=== PATIENT | male | born 1970 | race Caucasian/White ===

== ENCOUNTER 2019-09-26 05:58 | Emergency (ER) | payer SELFPAY ==
[2019-09-26 06:02] VITALS: BP 160/76; PULSE 77; RESP 16; TEMP 36.7; O2SAT 100
--- NOTE | 2019-09-26 07:01 | ED.SKABFB ---
HPI - Skin/Abscess/Foreign Bdy General Chief complaint: Skin/Abscess/Foreign Body Stated complaint: boil on face Time Seen by Provider: 09/26/19 07:01 Source: patient Mode of arrival: ambulatory Limitations: no limitations History of Present Illness HPI narrative: Patient is a 49-year-old male who presents for evaluation of a 5-day history of right-sided facial irritation. Patient states that he had a pimple on the right side of his face which he popped, drained some white material, and since that time he has had some redness and swelling over his cheek. Patient denies fever, chills. He has been trying some [id number] Neosporin without much improvement. No recurrent drainage. No other rash. No new soaps, lotions or detergents. Patient does not have a history of skin infections in the past. Related Data Allergies Allergy/AdvReac Type Severity Reaction Status Date / Time No Known Allergies Allergy Unverified 07/01/16 18:51 Review of Systems Review of Systems: Narrative: CONSTITUTIONAL: Denies fever CARDIOVASCULAR: Denies chest pain RESPIRATORY: Denies cough or dyspnea. GASTROINTESTINAL: Denies abdominal pain SKIN: Reports redness and swelling on the right side of his cheek MUSCULOSKELETAL: Denies back pain NEUROLOGIC: Denies headache PMFSH Past Medical History Medical History Chronic back pain Diabetes Hypertension Surgical History Surgical History (Updated 09/26/19 @ 07:20 by Baylee Jensen MD) H/O rhinoplasty Social History Social History (Updated 09/26/19 @ 07:21 by Baylee Jensen MD) Smoking status: Current every day smoker Alcohol intake: never Substance use: never Gender identity (if verbalized by the patient): Male Exam Narrative: Exam Narrative: GENERAL: Awake, alert, conversant HEAD: Normocephalic, atraumatic. Right-sided maxilla edema, positive induration, mild warmth, erythema present. No fluctuance, no purulent discharge. There is a small wound area no discharge from this. No as sharp. No crepitus. EYES: PERRLA and EOMI, no pain with extraocular movements. ENT: Nares clear, no rhinorrhea or epistaxis. Mucous membranes moist. NECK: Supple. CHEST: No respiratory distress, breathing even and non labored HEART: Regular rate, sinus rhythm ABDOMEN:Non distended, non tender EXTREMITIES: Normal range of motion. No edema. SKIN: Warm, dry, no rash. NEURO:No focal deficits. Alert and oriented x3 Course Vital Signs Vital signs: Vital Signs Temperature 36.7 C 09/26/19 06:02 Pulse Rate 77 09/26/19 06:02 Respiratory Rate 16 09/26/19 06:02 Blood Pressure 160/76 H 09/26/19 06:02 Pulse Oximetry 100 09/26/19 06:02 Temperature 36.7 C 09/26/19 06:02 Pulse Rate 77 09/26/19 06:02 Respiratory Rate 16 09/26/19 06:02 Blood Pressure 160/76 H 09/26/19 06:02 Pulse Oximetry 100 09/26/19 06:02 MDM - Skin/Abscess/Foreign Bdy MDM Narrative Medical decision making narrative: Patient presented for evaluation of right-sided facial irritation after the patient popped a pimple on the right side of his face. Patient has no evidence of abscess, no fluctuance, no active purulent drainage, there is some induration, mild warmth of the right maxillary epidermis tissue. This is concerning for early cellulitis. No ocular involvement to suggest preseptal or orbital cellulitis. No vesicles to suggest zoster. Patient is otherwise systemically well without signs of systemic infection or sepsis. We will go ahead and prescribe antibiotics for the patient and patient does have a follow-up appoint with his primary care provider next week. Advised the patient to return should the swelling worsen, he have any eye involvement, vision double changes, fever, or inability to tolerate the antibiotic. Patient was then discharged home in stable condition. Differential Diagnosis Differential diagnosis: Likely abscess of skin or subc
== END 2019-09-26 07:37 | disposition home or self-care (01) ==
PROVIDERS: Emergency Provider Emergency Medicine
DX: L03.211 Cellulitis of face (principal); E11.9 Type 2 diabetes mellitus without complications; I10 Essential (primary) hypertension; F17.200 Nicotine dependence, unspecified, uncomplicated
CPT/HCPCS: 99283

== ENCOUNTER 2019-12-26 13:55 | Emergency (ER) | payer MEDICAID, SELFPAY ==
[2019-12-26 13:59] VITALS: BP 133/74; PULSE 89; RESP 20; TEMP 36.8; O2SAT 100
[2019-12-26 14:48] VITALS: BP 141/74; PULSE 84; RESP 19; TEMP 36.6; O2SAT 99
--- NOTE | 2019-12-26 14:48 | ED.LOWEXIN ---
HPI - Extremity Injury (Lower) General Chief Complaint: Extremity Injury, Lower Stated Complaint: L HIP PAIN Time Seen by Provider: 12/26/19 14:04 History of Present Illness HPI Narrative: Patient is a 49-year-old male who presents ER with left hip pain. Has been diagnosed with trochanteric bursitis. He has had a steroid injection several weeks ago that only lasted for about a week. No recent trauma or injury. Pain is worse at night. He has no focal weakness. No numbness of the lower extremity. He does report increasing edema bilateral lower extremities that is trace. Patient had been on a course of naproxen for 14 days which did not help his discomfort. Related Data Home Medications Medication Instructions Recorded Confirmed atorvastatin 12/26/19 famotidine 12/26/19 gabapentin 12/26/19 lisinopril 12/26/19 metformin mg 12/26/19 pioglitazone mg 12/26/19 sildenafil (pulm.hypertension) 12/26/19 verapamil mg PO 12/26/19 Allergies Allergy/AdvReac Type Severity Reaction Status Date / Time No Known Allergies Allergy Verified 12/26/19 13:57 Review of Systems Review of Systems: All systems reviewed & are unremarkable except as noted in HPI and below Constitutional: Constitutional: Denies chills and Denies fever(s) Musculoskeletal: Musculoskeletal: Denies back pain, Denies arthralgias, Denies joint swelling and Denies muscle cramps Comments: Left hip pain Neurologic: Denies focal weakness and Denies numbness PMFSH Past Medical History Medical History (Updated 12/26/19 @ 14:52 by Raphael Hamilton MD) Chronic back pain Diabetes Hypertension Surgical History Surgical History (Updated 09/26/19 @ 07:20 by Baylee Jensen MD) H/O rhinoplasty Social History Social History (Updated 09/26/19 @ 07:21 by Baylee Jensen MD) Smoking status: Current every day smoker Alcohol intake: never Substance use: never Gender identity (if verbalized by the patient): Male Exam Narrative: Exam Narrative: GENERAL: Well-appearing, well-nourished, and in no acute distress. HEAD: Normocephalic, atraumatic. EXTREMITIES: Normal range of motion. Trace edema. No tenderness with palpation of the left hip. Back: No midline tenderness of the thoracic or lumbar spine. No paraspinal muscular tenderness or discomfort over the SI joints. SKIN: Warm, dry, no rash. NEURO: No focal deficits. Alert and oriented x3. PSYCH: Normal mood and affect. Course Course Emergency Course: We will give a Medrol Dosepak and some [place]. Needs follow-up with PCP. Vital Signs Vital signs: Vital Signs Temperature 98.2 F 12/26/19 13:59 Pulse Rate 89 12/26/19 13:59 Respiratory Rate 20 12/26/19 13:59 Blood Pressure 133/74 12/26/19 13:59 Pulse Oximetry 100 12/26/19 13:59 Temperature 98.2 F 12/26/19 13:59 Pulse Rate 89 12/26/19 13:59 Respiratory Rate 20 12/26/19 13:59 Blood Pressure 133/74 12/26/19 13:59 Pulse Oximetry 100 12/26/19 13:59 Discharge Plan Discharge Clinical Impression: Greater trochanteric bursitis of left hip Patient Disposition: Home, Self-Care Condition: Stable Instructions: Hip Bursitis (ED) Additional Instructions: Return to the ER if you have increased pain in your back, you develop lower extremity weakness/numbness/paralysis, you have numbness or tingling in your private parts, or you are unable to control your ability to urinate/stool. Prescriptions: New methylprednisolone [Medrol (Adam)] 4 mg tablets,dose pack See Rx Instructions .ROUTE .COMPLEX Qty: 21 RF: 0 hydrocodone-acetaminophen 5-325 mg tablet 1 tablet PO Q6H PRN (Reason: pain) Qty: 10 RF: 0 No Action atorvastatin 20 mg tablet RF: 0 lisinopril 20 mg tablet RF: 0 famotidine 20 mg tablet RF: 0 metformin 1,000 mg tablet RF: 0 gabapentin 300 mg capsule RF: 0 pioglitazone 30 mg tablet RF: 0 verapamil 240 mg caps
[2019-12-26 15:43] VITALS: BP 124/83; PULSE 85; RESP 16; O2SAT 100
== END 2019-12-26 15:45 | disposition home or self-care (01) ==
PROVIDERS: Emergency Provider Emergency Medicine
DX: M70.62 Trochanteric bursitis, left hip (principal); E11.9 Type 2 diabetes mellitus without complications; I10 Essential (primary) hypertension; Z79.84 Long term (current) use of oral hypoglycemic drugs; F17.200 Nicotine dependence, unspecified, uncomplicated
CPT/HCPCS: 99283

== ENCOUNTER 2023-04-11 09:37 | Outpatient (CLI) | payer BC, SELFPAY ==
--- NOTE | ~2023-04-11 | MR_ITS ---
EXAMINATION: MR brain/brain stem wo/w con DATE: 04/11/2023 10:28 INDICATION: Memory loss. Abnormal brain MRI. TECHNIQUE: Magnetic resonance imaging (MRI) of the brain and brainstem was performed without and with 20 mL MultiHance intravenous contrast. COMPARISON: Head CT 01/07/2011 FINDINGS: The lateral, third, and fourth ventricles are dilated out of proportion to the size of the sulci. There is increased T2-weighted signal intensity in the periventricular white matter, likely tr ansependymal flow of cerebrospinal fluid. There is no intracranial hemorrhage, acute infarction, or a bnormal intracranial mass lesion. There is mild mucosal thickening in the paranasal sinuses. The orbi ts are normal. The mastoid air cells are normal. IMPRESSION: 1. Ventriculomegaly, new from 01/07/2011. Correlate clinically for normal pressure hydrocephalus. Reviewed, dictated and finalized at location A. K PLAN ADMINISTRATOR IMPRESSION: 1. Ventriculomegaly, new from 01/07/2011. Correlate clinically for normal press ure hydrocephalus.
== END 2023-04-11 09:38 | disposition home or self-care (01) ==
DX: G93.89 Other specified disorders of brain (principal); R41.3 Other amnesia; R90.89 Other abnormal findings on diagnostic imaging of central nervous system
CPT/HCPCS: 70553; A9577

== ENCOUNTER 2023-07-16 11:01 | Emergency (ER) | payer BC, SELFPAY ==
--- NOTE | ~2023-07-16 | CT_ITS ---
EXAMINATION: CT abdomen pelvis w con DATE: 07/16/2023 12:19 INDICATION: Generalized abdominal pain. TECHNIQUE: Computed tomography (CT) of the abdomen and pelvis was performed with 100 mL Omnipaque 350 intravenous contrast. Automated exposure control and iterative reconstruction technique were employe d. The dose-length product was 841.43 mGy-cm. COMPARISON: None. FINDINGS: The visualized portions of the lung bases demonstrate mild atelectasis. There is a 10 mm no dule in left upper lobe. No pleural effusion. The heart size is normal. There are coronary artery mariusz cifications. No pericardial effusion. The liver and gallbladder are normal. Calcifications in the spl een are consistent with old granulomatous disease. The pancreas, adrenal glands, and right kidney are normal. There is a 17 mm cyst in left kidney. There is diverticulosis of the colon without evidence of diverticulitis. The appendix is normal. A ventriculoperitoneal shunt is noted. There are foci of f ree intraperitoneal gas. There are foci of gas in the anterior body wall. There are no pathologically enlarged lymph nodes. There is trace pelvic ascites. There is lumbar dextroscoliosis and severe spon dylosis. There is mild chronic anterior wedging of multiple vertebral bodies. IMPRESSION: 1. 10 mm left upper lobe pulmonary nodule suspicious for primary bronchogenic carcinoma. PET/CT or 3 month noncontrast low-dose chest CT is recommended. 2. Gas in the peritoneum and anterior body wall, likely from recent ventriculoperitoneal shunt placem ent. Reviewed, dictated and finalized at location A. IMPRESSION: 1. 10 mm left upper lobe pulmonary nodule suspicious for primary bronchogenic c arcinoma. PET/CT or 3 month noncontrast low-dose chest CT is recommended. 2. Gas in the peritoneum and anterior body wall, likely from recent ventriculop eritoneal shunt placement.
[2023-07-16 11:03] VITALS: BP 167/91; PULSE 79; RESP 16; TEMP 37; O2SAT 99
[2023-07-16 11:13] LABS: Basophils Percent Auto 0.3 % (0.2-1.2); Eosinophils Absolute Auto 0.2 K/mm3 (0-0.3); Eosinophils Percent Auto 2.3 % (0-4.4); Hematocrit 45.1 % (42.0-52.0); Hemoglobin 14.7 g/dL (14.0-18.0); Immature Granulocyte Absolute 0.08 K/mm3 (0.00-0.031); Immature Granulocyte Percent A 0.9 % (0-0.5); Lymphocytes Absolute Auto 1.77 K/mm3 (0.9-3.2); Lymphocytes Percent Auto 20.3 % (18.3-44.2); Mean Corpuscular HGB Conc 32.6 g/dl (32-36); Mean Corpuscular Hemoglobin 31.5 pg (26-34); Mean Corpuscular Volume 96.6 fl (80-100); Monocytes Absolute Auto 0.7 K/mm3 (0.1-0.6); Monocytes Percent Auto 7.4 % (2.6-8.5); Neutrophils Percent Auto 68.8 % (45.5-73.1); Platelet Count Result 291 k/mm3 (150-375); Red Blood Count 4.67 M/mm3 (4.6-6.20); Red Cell Distribution Width 14.4 % (11.5-14.5); White Blood Count 8.7 K/mm3 (4.5-10.0)
[2023-07-16 11:15] VITALS: BP 144/93; PULSE 74; RESP 17; O2SAT 100
--- NOTE | 2023-07-16 11:18 | ED.ABDPAIN ---
HPI - Abdominal Pain General Chief Complaint: Abdominal Pain <Joni Ovalle PA-C - Last Filed: 07/16/23 19:00> Stated Complaint: abd pain <Joni Ovalle PA-C - Last Filed: 07/16/23 19:00> Time Seen by Provider: 07/16/23 11:04 <Joni Ovalle PA-C - Last Filed: 07/16/23 19:00> Source: patient <DEANNE Sethi Last Filed: 07/16/23 19:00> Mode of arrival: ambulatory <DEANNE Sethi Last Filed: 07/16/23 19:00> Limitations: no limitations <Joni Ovalle PA-C - Last Filed: 07/16/23 19:00> History of Present Illness HPI narrative: This is a 53-year-old male who presents to the ED with chief complaint of diffuse abdominal discomfort for the past few days. Patient reports he had RN ER shunt placed 1 week ago and has been dealing with constipation. Yesterday states that he started to have more regular bowel movements which has helped. He states he is still feeling a little bloated and just wanted to get checked out. Denies fevers, chills, vomiting, nausea, diarrhea, flank pain, urinary symptoms, headache. <Joni Ovalle PA-C - Last Filed: 07/16/23 19:00> Related Data Home Medications: Home Medications Medication Instructions Recorded Confirmed atorvastatin 20 mg tablet 12/26/19 famotidine 20 mg tablet 12/26/19 gabapentin 300 mg capsule 12/26/19 lisinopril 20 mg tablet 12/26/19 metformin 1,000 mg tablet mg 12/26/19 pioglitazone 30 mg tablet mg 12/26/19 sildenafil (pulm.hypertension) 20 12/26/19 mg tablet verapamil 240 mg 24 hr mg PO 12/26/19 capsule,extended release <DEANNE Sethi Last Filed: 07/16/23 19:00> Allergies/Adverse Reactions: Allergies Allergy/AdvReac Type Severity Reaction Status Date / Time ibuprofen AdvReac Unknown Verified 07/16/23 11:08 naproxen AdvReac Unknown Verified 07/16/23 11:08 <Joni Ovalle PA-C - Last Filed: 07/16/23 19:00> Review of Systems Review of Systems: All systems as dictated in HPI <Joni Ovalle PA-C - Last Filed: 07/16/23 19:00> PMFSH Past Medical History Medical History: Medical History (Updated 07/16/23 @ 13:17 by Joni Ovalle PA-C) Chronic back pain Diabetes Hypertension <Joni Ovalle PA-C - Last Filed: 07/16/23 19:00> Surgical History Surgical History: Surgical History (Updated 09/26/19 @ 07:20 by Baylee Jensen MD) H/O rhinoplasty <Joni Ovalle PA-C - Last Filed: 07/16/23 19:00> Social History Social History: Social History (Updated 09/26/19 @ 07:21 by Baylee Jensen MD) Smoking status: Current every day smoker Alcohol intake: never Substance use: never Gender identity (if verbalized by the patient): Male <Joni Ovalle PA-C - Last Filed: 07/16/23 19:00> Exam Narrative: GENERAL: Well-appearing, well-nourished, and in no acute distress. HEAD: Normocephalic, atraumatic. EYES: PERRLA and EOMI. ENT: Nares clear, no rhinorrhea or epistaxis. Mucous membranes moist. Oropharynx without tonsillar hypertrophy exudate or other lesions. NECK: Supple. No adenopathy or masses. CHEST: No respiratory distress. Clear to auscultation. No wheezes rales or rhonchi HEART: Regular rate and rhythm. No murmur heard. Normal peripheral pulses. ABDOMEN: Mild abdominal distension. Soft, nontender, normal active bowel sounds. Negative peritoneal signs MSK: Normal range of motion. No edema. SKIN: Warm, dry, no rash. NEURO: Alert and oriented x3. No focal deficits. PSYCH: Normal mood and affect. <Joni Ovalle PA-C - Last Filed: 07/16/23 19:00> Course GATE CLERK/PA Physician Supervision This visit was performed by both a physician and an APC. I performed all aspects of the MDM as documented. <Re Maria MD - Last Filed: 07/16/23 22:33> Vital Signs Vital signs: Vital Signs Temperature 98.6 F 07/16/23 11:03 Pulse Rate 79 07/16/23 11:03 Respiratory Rate 16 07/16/23 11:03 Blood Pressure 167/91 H 07/16/23
[2023-07-16 11:23] LABS: Alanine Aminotransferase 13 U/L (6-50); Albumin Level 4.4 g/dL (3.5-5.1); Alkaline Phosphatase 62 U/L (38-126); Anion Gap 10 mmol/L (4-12); Aspartate Amino Transferase 14 U/L (17-59); Bilirubin,Total 0.4 mg/dL (0.2-1.3); Blood Urea Nitrogen 13 mg/dL (9-20); Calcium 10.1 mg/dL (8.4-10.2); Carbon Dioxide 26 mmol/L (22-30); Chloride 106 mmol/L (98-107); Estimated CRCL calculation 119 ml/min; Estimated Glomerular Filt Rate > 60; Glucose 114 mg/dL (65-110); Lipase 46 U/L (23-300); Potassium 4.2 mmol/L (3.4-5.0); Sodium 142 mmol/L (137-145)
[2023-07-16 11:46] LABS: Appearance Urine Clear (Clear); Bacteria Urine None Seen /hpf; Bilirubin Urine Negative (Negative); Blood Urine Negative (Negative); Color Urine Yellow (Yellow); Glucose Urine UA 3+ mg/dL (Negative); Ketones Urine Negative (Negative); Leukocyte Esterase Ur Negative LEU/UL (Negative); Nitrate Urine Negative (Negative); Non Pathogenic Casts 0-2; Protein Urine 1+ mg/dL (Negative); RBC Urine 0-2 /hpf (0-2); Squamous Epithelial Cell Urine None Seen /hpf (Few); WBC Urine 0-5 /hpf (0-3); pH Urine 5.5 (5.0-9.0)
[2023-07-16 11:54] LABS: Add Urine Microscopic? YES; Specific Grav Ur 1.039 (1.001-1.035)
[2023-07-16 14:04] VITALS: BP 144/93; PULSE 68; RESP 13; TEMP 36.7; O2SAT 98
== END 2023-07-16 14:05 | disposition home or self-care (01) ==
PROVIDERS: Emergency Medicine; Emergency Provider Physician Assistant
DX: R10.84 Generalized abdominal pain (principal); R91.1 Solitary pulmonary nodule; M54.50 Low back pain, unspecified; G89.29 Other chronic pain; I10 Essential (primary) hypertension; E11.9 Type 2 diabetes mellitus without complications; Z79.84 Long term (current) use of oral hypoglycemic drugs
CPT/HCPCS: 36415; 74177; 80053; 81001; 83690; 85025; 99284; Q9967